=== PATIENT | female | born 1935 | race African-American/Black ===

== ENCOUNTER 2018-07-13 20:06 | Inpatient (IN) ==
--- NOTE | 2018-07-13 20:40 | ED ---
HPI General Chief Complaint: Extremity Injury, Lower Stated Complaint: R knee inj x last night Time Seen by Provider: 07/13/18 20:15 History of Present Illness HPI Narrative: This is an 83-year-old female here with right knee/thigh/hip pain after she fell from a standing position in her home sometime early this morning. She reports she slipped falling onto her right flexed knee. She denies head injury or loss of consciousness. She is not anticoagulated. She reports she sat on the ground until her daughter arrived to help her get up. This was around lunchtime. She has been walking around with her walker since. The pain has steadily intensified therefore she came in for evaluation today. She denies headache, neck pain, chest pain, shortness of breath, abdominal pain , paresthesia or weakness of the extremities. She has had a prior pelvic fracture several years prior and right total knee replacement in early . Pain in the right extremity is worse with weightbearing and relieved with rest. Severity is moderate. Related Data Previous Rx's Medication Instructions Recorded gabapentin 300 mg PO HS #30 cap 07/17/18 lisinopril 10 mg PO DAILY 30 Days #30 tab 07/17/18 primidone 100 mg PO Q12H #60 tab 07/17/18 Allergies Allergy/AdvReac Type Severity Reaction Status Date / Time No Known Allergies Allergy Unverified 07/13/18 20:26 Review of Systems ROS: all other systems reviewed are negative [facility] Medical History Medical History History of hypertension (Acute) Hx of fracture of pelvis (Acute) Surgical History Surgical History History of knee replacement (Acute) Social History Social History Substance History: No History of Abuse Second Hand Smoke Exposure: No Smoking Status: Never smoker How Often Do You Have a Drink Containing Alcohol: Never Exam Narrative Exam Narrative: GENERAL: Alert and well-appearing 83-year-old female. SKIN: Focused skin assessment warm/dry. HEAD: Normocephalic. Atraumatic EYES: No scleral icterus. PERRLA. EOMI. No injection or drainage. NECK: Supple, trachea midline. No cervical midline tenderness. Freely moves the neck. CARDIOVASCULAR: Regular rate and rhythm without murmurs, gallops, or rubs. RESPIRATORY: Breath sounds equal bilaterally. No accessory muscle use. GASTROINTESTINAL: Abdomen soft, non-tender, nondistended. MUSCULOSKELETAL: No cyanosis, or edema. No chest wall tenderness. Pelvis is stable. She points to the right groin as sided pain. RLE: + Tenderness to the lateral hip, distal femur, anterior aspect of the knee. No obvious deformity. Flexion of the hip and knee elicit pain. Mild swelling to the right lower extremity which patient and family report is chronic. Palpable DP pulse. Sensation intact. Cap refill intact BACK: Nontender spine without obvious deformity. No CVA tenderness. NEUROLOGICAL: Awake and alert. No obvious cranial nerve deficit. Motor and sensory grossly within normal limits. Normal strength in lower extremities bilaterally. Normal speech. Course Consultations Consultation #1: Nereida with [facility] has accepted admission on behalf of Dr. Lorenz Time: 23:03 Initial Documented Vital Signs Temperature 99.7 F H 07/13/18 20:11 Pulse Rate 69 07/13/18 20:11 Respiratory Rate 18 07/13/18 20:11 Blood Pressure 155/70 H 07/13/18 20:11 Pulse Oximetry 96 07/13/18 20:11 Last Documented Vital Signs Temperature 98.2 F 07/17/18 04:00 Pulse Rate 54 L 07/17/18 04:00 Respiratory Rate 17 07/17/18 04:00 Blood Pressure 186/77 H 07/17/18 04:00 Pulse Oximetry 99 07/17/18 04:00 Sign Out Sign Out Data: Patient Sign Out occurred on 07/13/18 at 21:45. Patient's care was discussed, and care was transferred from Ana Upton to Alison Lambert. Sign Out Comment: End of shift signout to Dr. lambert with x-ray and CT pending. Last updated by Ana Upton at 07/13/18 20:59 Post-Handoff Eval: Patient was turned over to me at [address] of the brain and plain films of the pelvis and right knee. I will consult orthopedics regarding definitive care for this patient. Dr. Valdez has asked that us in the patient to the [facility] for treatment. I have discussed disposition again with the patient and her daughter. I have placed a call to the hospitalist for admission to the [facility]. Medical Decision Making MDM Narrative Medical decision making narrative: 83-year-old female with hip and knee pain after a fall today. Noncontrast CT the brain, right hip/pelvic x-ray, right knee x-ray ordered and pending. Medical Screen Exam Complete: Yes Emergency Medical Condition: Yes Differential Diagnosis Differential Diagnosis: Hip fracture, pelvic fracture, knee sprain Lab Data Result diagrams: 07/15/18 09:35 07/15/18 09:35 Lab Results 07/14/18 07/14/18 07/14/18 Range/Units 00:27 00:27 00:27 CBC w Diff Auto diff final WBC 7.3 (4.0-11.0) th/mm3 RBC 2.73 L (4.00-5.30) mil/mm3 Hgb 8.8 L (11.6-15.3) gm/dL Hct 25.6 L (35.0-46.0) % MCV 93.6 (80.0-100.0) fL MCH 32.3 (27.0-34.0) pg MCHC 34.5 (32.0-36.0) % RDW 13.6 (11.6-17.2) % Plt Count 126 L (150-450) th/mm3 MPV 10.7 (7.0-11.0) fL Neut % (Auto) 63.6 (16.0-70.0) % Lymph % (Auto) 26.1 (9.0-44.0) % Greer % (Auto) 5.0 (0.0-8.0) % Eos % (Auto) 4.5 H (0.0-4.0) % Baso % (Auto) 0.8 (0.0-2.0) % Neut # (Auto) 4.6 (1.8-7.7) th/mm3 Lymph # (Auto) 1.9 (1.0-4.8) th/mm3 Greer # (Auto) 0.4 (0.0-0.9) th/mm3 Eos # (Auto) 0.3 (0.0-0.4) th/mm3 Baso # (Auto) 0.1 (0.0-0.2) th/mm3 WBC Differential . Differential Comment . PT 11.0 (9.8-11.6) sec INR 1.1 Ratio APTT 22.9 L (24.3-30.1) sec Sodium 141 (136-145) meq/L Potassium 4.8 (3.5-5.1) meq/L Chloride 109 H (98-107) meq/L Carbon Dioxide 27.5 (21.0-32.0) meq/L Anion Gap 5 (5-15) meq/L BUN 34 H (7-18) mg/dL Creatinine 1.90 H (0.50-1.00) mg/dL Estimated GFR 30 L (>89) mL/min Random Glucose 132 H (74-106) mg/dL Calcium 8.6 (8.5-10.1) mg/dL Phosphorus (2.5-4.9) mg/dL Magnesium (1.5-2.5) mg/dL Total Bilirubin 0.2 (0.2-1.0) mg/dL AST 55 H (15-37) U/L ALT 28 (10-53) U/L Alkaline Phosphatase 86 (45-117) U/L Total Protein 8.0 (6.4-8.2) g/dL Albumin 3.4 (3.4-5.0) g/dL Urine Color (Yellw/Straw) Urine Clarity (Clear) Urine pH (5.0-8.5) Ur Specific [place] (1.002-1.035) Urine Protein (Neg-Trace) mg/dL Urine Glucose (UA) (Negative) mg/dL Urine Ketones (Negative) mg/dL Urine Occult Blood (Negative) Urine Nitrate (Negative) Urine Bilirubin (Negative) Urine Urobilinogen (Less than 2) mg/dL Ur Leukocyte Esterase (Negative) Urine RBC (0-3) /hpf Urine WBC (0-5) /hpf Urine WBC Clumps (None) Ur Squamous Epith Cells (0-5) /hpf Urine Bacteria (None) /hpf WBC Casts (None) /lpf Micro UA Comment Urine Culture Comments 07/14/18 07/14/18 07/15/18 Range/Units 02:15 06:20 09:35 CBC w Diff WBC 4.0 (4.0-11.0) th/mm3 RBC 2.90 L (4.00-5.30) mil/mm3 Hgb 9.5 L (11.6-15.3) gm/dL Hct 29.0 L (35.0-46.0) % MCV 100.0 D (80.0-100.0) fL MCH 32.9 (27.0-34.0) pg MCHC 32.9 (32.0-36.0) % RDW 14.1 (11.6-17.2) % Plt Count 126 L (150-450) th/mm3 MPV 10.8 (7.0-11.0) fL Neut % (Auto) 52.9 (16.0-70.0) % Lymph % (Auto) 32.0 (9.0-44.0) % Greer % (Auto) 7.6 (0.0-8.0) % Eos % (Auto) 6.9 H (0.0-4.0) % Baso % (Auto) 0.6 (0.0-2.0) % Neut # (Auto) 2.1 (1.8-7.7) th/mm3 Lymph # (Auto) 1.3 (1.0-4.8) th/mm3 Greer # (Auto) 0.3 (0.0-0.9) th/mm3 Eos # (Auto) 0.3 (0.0-0.4) th/mm3 Baso # (Auto) 0.0 (0.0-0.2) th/mm3 WBC Differential . Differential Comment Auto diff final PT (9.8-11.6) sec INR Ratio APTT (24.3-30.1) sec Sodium 143 (136-145) meq/L Potassium 5.3 H (3.5-5.1) meq/L Chloride 111 H (98-107) meq/L Carbon Dioxide 24.6 (21.0-32.0) meq/L Anion Gap 7 (5-15) meq/L BUN 31 H (7-18) mg/dL Creatinine 1.60 H (0.50-1.00) mg/dL Estimated GFR 37 L (>89) mL/min Random Glucose 144 H (74-106) mg/dL Calcium 8.7 (8.5-10.1) mg/dL Phosphorus (2.5-4.9) mg/dL Magnesium (1.5-2.5) mg/dL Total Bilirubin 0.3 (0.2-1.0) mg/dL AST 54 H (15-37) U/L ALT 26 (10-53) U/L Alkaline Phosphatase 76 (45-117) U/L Total Protein 7.3 D (6.4-8.2) g/dL Albumin 2.9 L (3.4-5.0) g/dL Urine Color Yellow (Yellw/Straw) Urine Clarity Slightly cloudy (Clear) Urine pH 6.0 (5.0-8.5) Ur Specific [place] 1.020 (1.002-1.035) Urine Protein Trace (Neg-Trace) mg/dL Urine Glucose (UA) Negative (Negative) mg/dL Urine Ketones Trace H (Negative) mg/dL Urine Occult Blood Small H (Negative) Urine Nitrate Negative (Negative) Urine Bilirubin Negative (Negative) Urine Urobilinogen 0.2 (Less than 2) mg/dL Ur Leukocyte Esterase Moderate H (Negative) Urine RBC 4-15 H (0-3) /hpf Urine WBC 9-20 H (0-5) /hpf Urine WBC Clumps Rare H (None) Ur Squamous Epith Cells 6-10 H (0-5) /hpf Urine Bacteria Few H (None) /hpf WBC Casts 1-3 H (None) /lpf Micro UA Comment Culture indicated Urine Culture Comments Culture indicated 07/15/18 Range/Units 09:35 CBC w Diff WBC (4.0-11.0) th/mm3 RBC (4.00-5.30) mil/mm3 Hgb (11.6-15.3) gm/dL Hct (35.0-46.0) % MCV (80.0-100.0) fL MCH (27.0-34.0) pg MCHC (32.0-36.0) % RDW (11.6-17.2) % Plt Count (150-450) th/mm3 MPV (7.0-11.0) fL Neut % (Auto) (16.0-70.0) % Lymph % (Auto) (9.0-44.0) % Greer % (Auto) (0.0-8.0) % Eos % (Auto) (0.0-4.0) % Baso % (Auto) (0.0-2.0) % Neut # (Auto) (1.8-7.7) th/mm3 Lymph # (Auto) (1.0-4.8) th/mm3 Greer # (Auto) (0.0-0.9) th/mm3 Eos # (Auto) (0.0-0.4) th/mm3 Baso # (Auto) (0.0-0.2) th/mm3 WBC Differential Differential Comment PT (9.8-11.6) sec INR Ratio APTT (24.3-30.1) sec Sodium 140 (136-145) meq/L Potassium 4.9 (3.5-5.1) meq/L Chloride 111 H (98-107) meq/L Carbon Dioxide 22.0 (21.0-32.0) meq/L Anion Gap 7 (5-15) meq/L BUN 28 H (7-18) mg/dL Creatinine 1.20 H (0.50-1.00) mg/dL Estimated GFR 52 L (>89) mL/min Random Glucose 118 H (74-106) mg/dL Calcium 8.6 (8.5-10.1) mg/dL Phosphorus 3.1 (2.5-4.9) mg/dL Magnesium 2.0 (1.5-2.5) mg/dL Total Bilirubin (0.2-1.0) mg/dL AST (15-37) U/L ALT (10-53) U/L Alkaline Phosphatase (45-117) U/L Total Protein (6.4-8.2) g/dL Albumin 2.7 L (3.4-5.0) g/dL Urine Color (Yellw/Straw) Urine Clarity (Clear) Urine pH (5.0-8.5) Ur Specific [place] (1.002-1.035) Urine Protein (Neg-Trace) mg/dL Urine Glucose (UA) (Negative) mg/dL Urine Ketones (Negative) mg/dL Urine Occult Blood (Negative) Urine Nitrate (Negative) Urine Bilirubin (Negative) Urine Urobilinogen (Less than 2) mg/dL Ur Leukocyte Esterase (Negative) Urine RBC (0-3) /hpf Urine WBC (0-5) /hpf Urine WBC Clumps (None) Ur Squamous Epith Cells (0-5) /hpf Urine Bacteria (None) /hpf WBC Casts (None) /lpf Micro UA Comment Urine Culture Comments Imaging Data Attestation: I personally reviewed and interpreted this imaging study as follows : Radiologist's impression: Head CT 07/13/18 20:23 CONCLUSION: 1. No acute findings in the brain. . Hip X-Ray 07/13/18 20:23 CONCLUSION: Abnormal appearance to the right superior and inferior pubic ramus suggesting old bony injury, but there is also a lucency about the superior pubic ramus suggesting there may be an acute on chronic injury. Small cystic lesion at the junction of the superior femoral head and neck may also be a manifestation of old injury. Recommend further evaluation with thin section CT. Knee X-Ray 07/13/18 20:23 CONCLUSION: Mildly displaced spiral fracture of the distal femur about the long femoral stem component of the total knee arthroplasty. Pelvis CT 07/13/18 22:48 CONCLUSION: 1. Old trauma. No acute abnormality. Chest X-Ray 07/13/18 22:58 CONCLUSION: No acute cardiopulmonary disease. Knee X-Ray 07/16/18 00:00 CONCLUSION: Stable oblique minimally displaced periprosthetic fracture of the distal right femoral metadiaphysis, as above. Discharge Plan Discharge Disposition Patient Disposition: 30 Still Patient Discharge Condition Condition: Fair Discharge Order Discharge Orders: Discharge Order (Routine); Ordered 07/17/18 Ordered By: Corby Jolly Discharge Details Diagnosis: Closed fracture of right distal femur, Closed pelvic fracture Physicians Team ED Provider: Alison Lambert Primary Care Provider: UNKNOWN, Attending Provider: Yaron Hernadez Other Providers: Brian Farr ; [employer] ; Yaron Valdez ; Renetta Hutson Status ED Status: Left Department Discharge Information Discharge Date/Time: 07/14/18 02:28
--- NOTE | 2018-07-13 21:17 | CT ---
EXAM DATE: 07/13/2018 9:05 PM EDT AGE/SEX: 83 years / Female INDICATIONS: Trauma. Patient hit head and injured knee last night. CLINICAL DATA: This is the patient's initial encounter. Patient reports that signs and symptoms have been present for 1 day and indicates a pain score of 5/10. MEDICAL/SURGICAL HISTORY: . Hypertension. Fractured pelvis. . Knee replacement. RADIATION DOSE: 60.75 CTDI (mGy) COMPARISON: No prior exams available for comparison. TECHNIQUE: CT of the head without contrast. Using automated exposure control and adjustment of the mA and/or kV according to patient size, radiation dose was kept as low as reasonably achievable to ob tain optimal diagnostic quality images. DICOM format image data is available electronically for revi ew and comparison. FINDINGS: Cerebrum: The ventricles are normal for age. No evidence of midline shift, mass lesion, hemorrhage or acute infarction. No extraaxial fluid collections are seen. Posterior Fossa: The cerebellum and brainstem are intact. The 4th ventricle is midline. The cerebe llopontine angle is unremarkable. Extracranial: The visualized portion of the orbits is intact. 1 cm retention cyst or polyp right max illary sinus. Skull: The calvaria is intact. No evidence of skull fracture. CONCLUSION: 1. No acute findings in the brain. . Electronically signed by: Yaron Alexander MD 07/13/2018 9:16 PM EDT
--- NOTE | 2018-07-13 21:46 | XR ---
EXAM DATE: 07/13/2018 9:07 PM EDT AGE/SEX: 83 years / Female INDICATIONS: Patient states she fell today. Right hip and knee pain. CLINICAL DATA: This is the patient's initial encounter. Patient reports that signs and symptoms have been present for 1 day and indicates a pain score of 6/10. MEDICAL/SURGICAL HISTORY: . Pelvic fracture. Total knee replacement, right. COMPARISON: No prior exams available for comparison. FINDINGS: Diffuse osteopenia. There is deformity of the superior and inferior pubic ramus on the right side whi ch has a appearance suggestive of old injury, however, on one of the oblique views, there is angulati on of the cortex and a lucency in the superior pubic ramus suggesting there may be an acute component . The primary and secondary trabecular pattern of the femoral neck is maintained. There is a round sabino cency at the junction of the right superior femoral head and neck with thin sclerotic margin suggesti ng manifestation of old injury. The intertrochanteric region is intact. There is a amorphous calcific ation projected over the midline pelvis which may be related to the uterus measuring 1.5 cm. Addition al small calcifications are seen in the soft tissues of the left gluteal region. Additional calcifica tions are seen about the lower lumbar region. The arcuate lines of the sacrum or symmetric. CONCLUSION: Abnormal appearance to the right superior and inferior pubic ramus suggesting old bony injury, but th ere is also a lucency about the superior pubic ramus suggesting there may be an acute on chronic inju ry. Small cystic lesion at the junction of the superior femoral head and neck may also be a manifesta tion of old injury. Recommend further evaluation with thin section CT. Electronically signed by: Yaron Alexander MD 07/13/2018 9:45 PM EDT
--- NOTE | 2018-07-13 21:48 | XR ---
EXAM DATE: 07/13/2018 9:09 PM EDT AGE/SEX: 83 years / Female INDICATIONS: Right knee and hip pain after patient fell today. CLINICAL DATA: This is the patient's initial encounter. Patient reports that signs and symptoms have been present for 1 day and indicates a pain score of 5/10. MEDICAL/SURGICAL HISTORY: None. Total knee replacement, right. COMPARISON: No prior exams available for comparison. FINDINGS: There is a total knee arthroplasty with long femoral stem component and moderate size tibial stem com ponent. There is a spiral fracture about the distal diaphysis of the femur with one cortex width medi al displacement of the distal fracture fragment and 3 mm separation. There is no bridging callus . CONCLUSION: Mildly displaced spiral fracture of the distal femur about the long femoral stem component of the tot al knee arthroplasty. Electronically signed by: Yaron Alexander MD 07/13/2018 9:47 PM EDT
--- NOTE | 2018-07-13 23:39 | CT ---
EXAM DATE: 07/13/2018 11:28 PM EDT AGE/SEX: 83 years / Female INDICATIONS: Trauma. Patient fell and injured her right knee. CLINICAL DATA: This is the patient's initial encounter. Patient reports that signs and symptoms have been present for 1 day and indicates a pain score of 6/10. MEDICAL/SURGICAL HISTORY: . Hypertension. Fractured pelvis. . Knee replacement. RADIATION DOSE: 30.57 CTDI (mGy) COMPARISON: No prior exams available for comparison. TECHNIQUE: Multiple contiguous axial images were obtained through the pelvis without contrast. Imag es were obtained using multiple row detector helical technique. . Using automated exposure control an d adjustment of the mA and/or kV according to patient size, radiation dose was kept as low as reasona erica achievable to obtain optimal diagnostic quality images. DICOM format image data is available jhonny ctronically for review and comparison. FINDINGS: Bowel/Mesentery: The bowel loops are grossly unremarkable. The sigmoid colon has a normal configura tion. Bladder: Contours are smooth. Retroperitoneum: No evidence of deep pelvic adenopathy. Reproductive Organs: A homogeneously calcified degenerating fibroid involving the uterus.. Inguinal: The inguinal region is unremarkable without evidence of adenopathy. Bony Structures: Old fracture involving the superior and inferior pubic rami on the right. No acute fracture observed. Bilateral hip osteoarthritis. Degenerative changes involving the visualized portio ns lumbar spine and SI joints. Injection granulomas involving the left buttock.. Diffuse calcified atherosclerotic plaque involving the visualized portions of aorta and inflow vessel s. CONCLUSION: 1. Old trauma. No acute abnormality. Electronically signed by: Yaron Miller MD 07/13/2018 11:38 PM EDT
--- NOTE | 2018-07-13 23:41 | XR ---
EXAM DATE: 07/13/2018 11:39 PM EDT AGE/SEX: 83 years / Female INDICATIONS: Evaluate for pneumonia, pneumothorax, or communicable disease. Pre op for right femur surgery. CLINICAL DATA: This is the patient's initial encounter. Patient reports that signs and symptoms have been present for 1 day and indicates a pain score of 0/10. MEDICAL/SURGICAL HISTORY: Hypertension. None. COMPARISON: No prior exams available for comparison. FINDINGS: A single AP view of the chest demonstrates the lungs to be symmetrically aerated without evidence of mass, infiltrate or effusion. The cardiomediastinal contours are unremarkable. Advanced osteoarthrit is of the shoulders bilaterally. Degenerative thoracic spine.. CONCLUSION: No acute cardiopulmonary disease. Electronically signed by: Yaron Miller MD 07/13/2018 11:40 PM EDT
[2018-07-14 00:44] LABS: Baso # (Auto) 0.1 th/mm3 (0.0-0.2); Baso % (Auto) 0.8 % (0.0-2.0); Eos # (Auto) 0.3 th/mm3 (0.0-0.4); Eos % (Auto) 4.5 % (0.0-4.0); Hematocrit 25.6 % (35.0-46.0); Hemoglobin 8.8 gm/dL (11.6-15.3); Lymph # (Auto) 1.9 th/mm3 (1.0-4.8); Lymph % (Auto) 26.1 % (9.0-44.0); Mean Corpuscular HGB Conc 34.5 % (32.0-36.0); Mean Corpuscular Hemoglobin 32.3 pg (27.0-34.0); Mean Corpuscular Volume 93.6 fL (80.0-100.0); Mean Platelet Volume 10.7 fL (7.0-11.0); Mono # (Auto) 0.4 th/mm3 (0.0-0.9); Neut # (Auto) 4.6 th/mm3 (1.8-7.7); Neut % (Auto) 63.6 % (16.0-70.0); Platelet Count 126 th/mm3 (150-450); Red Blood Count 2.73 mil/mm3 (4.00-5.30); Red Cell Distribution Width 13.6 % (11.6-17.2); White Blood Count 7.3 th/mm3 (4.0-11.0)
[2018-07-14 00:54] LABS: Chloride 109 meq/L (98-107); Potassium 4.8 meq/L (3.5-5.1); Sodium 141 meq/L (136-145)
[2018-07-14 00:57] LABS: Calcium 8.6 mg/dL (8.5-10.1)
[2018-07-14 00:58] LABS: Activated Partial Thrombo Time 22.9 sec (24.3-30.1); Albumin 3.4 g/dL (3.4-5.0); Anion Gap 5 meq/L (5-15); Blood Urea Nitrogen 34 mg/dL (7-18); Carbon Dioxide 27.5 meq/L (21.0-32.0); Glucose,Random 132 mg/dL (74-106); INR 1.1 Ratio
[2018-07-14 01:01] LABS: Alanine Aminotransferase 28 U/L (10-53); Aspartate Aminotransferase 55 U/L (15-37); Glomerular Filtration Rate 30 mL/min (>89)
[2018-07-14 01:04] LABS: Alkaline Phosphatase 86 U/L (45-117)
[2018-07-14] MEDS: Sod Chloride 0.9% Inj 1,000 ML IV.CONT SCH ×3 (01:10→23:21)
[2018-07-14 02:27] LABS: Bilirubin,Urine Negative (Negative); Color,Urine Yellow (Yellw/Straw); Glucose,Urine (UA) Negative (Negative); Leukocyte Esterase,Urine Moderate (Negative); Nitrite,Urine Negative (Negative); Urobilinogen,Urine 0.2 mg/dL (Less than 2)
[2018-07-14 02:36] LABS: Clarity,Urine Slightly Cloudy (Clear)
[2018-07-14 02:38] LABS: Bacteria,Urine Few /hpf
[2018-07-14] MEDS ORDERED: Morphine Inj 4 MG/ML Vial IV.PUSH PRN (04:29)
--- NOTE | 2018-07-14 04:32 | P.HPIM ---
History of Present Illness Service: [facility] Primary Care Physician: UNKNOWN Chief Complaint: right knee pain History of Present Illness: 83 y/o female with a history of htn presented to the ED after having a fall. Patient states she tripped and fell in his living room on to her right knee. She currently denies any pain. No chest pain, sob, or dizziness prior to fall. Denies any LOC or hitting her head. No recent fever or chills. Inpatient Certification: I certify that the inpatient services were ordered in accordance with Medicare regulations governing the order. This includes certification that hospital inpatient services are reasonable and necessary and in the case of services not specified as inpatient-only under 42 CFR 419.22(n), that they are appropriately provided as inpatient services in accordance to with the 2-midnight benchmark under 43 CFR 412.3(e) Estimated Total Length of Stay (Days): 2 Plans for Post Hospital Care: Home Review of Systems All other systems reviewed negative except as stated in HPI [facility] - History History Provided By: Patient - Medical History Medical History: Medical History (Last Reviewed 07/13/18 @ 20:34 by Ana Upton) History of hypertension Hx of fracture of pelvis - Surgical History Surgical History: Surgical History (Last Reviewed 07/13/18 @ 20:34 by Ana Upton) History of knee replacement - Family History Family History: Family History (Last Updated 07/14/18 @ 04:29 by MIGUEL Rodriguez) Other HTN (hypertension) - Tobacco History Second Hand Smoke Exposure: No Smoking Status: Never smoker - Alcohol History How Often Do You Have a Drink Containing Alcohol: Never - Substance Use History Substance History: No History of Abuse - Travel History Recent Travel in the [place] Within the Last 8 Weeks: No Recent Travel Out of the Country Within the Last 8 Weeks: No - Immunization History Tetanus Immunization: >5 Years Hx Influenza Vaccine This Season: No Medications and Allergies Active Medications: Active Medications Acetaminophen (Tylenol) 650 mg PO Q4H PRN PRN Reason: Temp > 100.4 Sodium Chloride (Ns Inj) 1,000 mls @ 100 mls/hr IV.CONT .Q10H [facility] Last Admin: 07/14/18 01:10 Dose: 100 mls/hr Morphine Sulfate (Morphine Inj) 2 mg IV.PUSH Q3H PRN PRN Reason: pain 1 to 10 Ondansetron HCl (Zofran Inj) 4 mg IV.PUSH Q6H PRN PRN Reason: NAUSEA OR VOMITING Allergies Allergy/AdvReac Type Severity Reaction Status Date / Time No Known Allergies Allergy Unverified 07/13/18 20:26 Home Medications Medication Instructions Recorded Confirmed Type gabapentin 300 mg PO HS 07/13/18 07/13/18 History lisinopril 5 mg PO DAILY 07/13/18 07/13/18 History oxybutynin chloride 10 mg PO BID 07/13/18 07/13/18 History primidone 100 mg PO Q12H 07/13/18 07/13/18 History Exam Vital signs: Vital Signs 07/13/18 20:11 07/14/18 01:01 07/14/18 02:24 Temperature 99.7 F H Pulse Rate 69 87 67 Respiratory Rate 18 18 Blood Pressure 155/70 H 148/72 H 166/66 H Pulse Oximetry 96 98 98 Intake & Output 07/13/18 07/13/18 07/14/18 06:59 18:59 06:59 Intake Total 200 / 200 Balance 200 / 200 Weight 88 kg Intake: Oral 200 / 200 Narrative: GENERAL: This is a well-nourished, well-developed patient, in no apparent distress. CARDIOVASCULAR: Regular rate and rhythm without murmurs, gallops, or rubs. RESPIRATORY: Clear to auscultation. Breath sounds equal bilaterally. No wheezes , rales, or rhonchi. GASTROINTESTINAL: Abdomen soft, non-tender, nondistended. Normal active bowel sounds MUSCULOSKELETAL: Extremities without clubbing, cyanosis, or edema. NEURO: Alert & Oriented x4 to person, place, time, situation. RLE limited movement in CKS Results - Labs CBC & Chem 7: 07/14/18 00:27 07/14/18 00:27 Labs: Short CBC 07/14/18 Range/Units 00:27 WBC 7.3 (4.0-11.0) th/mm3 Hgb 8.8 L (11.6-15.3) gm/dL Hct 25.6 L (35.0-46.0) % Plt Count 126 L (150-450) th/mm3 BMP 07/14/18 00:27 Sodium 141 Potassium 4.8 Chloride 109 H Carbon Dioxide 27.5 BUN 34 H Creatinine 1.90 H Calcium 8.6 Liver Function 07/14/18 Range/Units 00:27 Total Bilirubin 0.2 (0.2-1.0) mg/dL AST 55 H (15-37) U/L ALT 28 (10-53) U/L Alkaline Phosphatase 86 (45-117) U/L Albumin 3.4 (3.4-5.0) g/dL Urine 07/14/18 Range/Units 02:15 Urine Color Yellow (Yellw/Straw) Urine Clarity Slightly cloudy (Clear) Urine pH 6.0 (5.0-8.5) Ur Specific [place] 1.020 (1.002-1.035) Urine Protein Trace (Neg-Trace) mg/dL Urine Glucose (UA) Negative (Negative) mg/dL - Imaging Impressions Head CT 07/13/18 20:23 CONCLUSION: 1. No acute findings in the brain. . Hip X-Ray 07/13/18 20:23 CONCLUSION: Abnormal appearance to the right superior and inferior pubic ramus suggesting old bony injury, but there is also a lucency about the superior pubic ramus suggesting there may be an acute on chronic injury. Small cystic lesion at the junction of the superior femoral head and neck may also be a manifestation of old injury. Recommend further evaluation with thin section CT. Knee X-Ray 07/13/18 20:23 CONCLUSION: Mildly displaced spiral fracture of the distal femur about the long femoral stem component of the total knee arthroplasty. Pelvis CT 07/13/18 22:48 CONCLUSION: 1. Old trauma. No acute abnormality. Chest X-Ray 07/13/18 22:58 CONCLUSION: No acute cardiopulmonary disease. Caprini VTE Risk Assessment Caprini VTE Risk Assessment: Moderate/High Risk (score >= 2) Caprini Risk Assessment Model: Point Value = 1 Point Value = 2 Point Value = 3 Point Value = 5 Age 41-60 Minor surgery BMI > 25 kg/m2 Swollen legs Varicose veins or History of unexplained or recurrent spontaneous Oral contraceptives or hormone replacement Sepsis (< 1 month) Serious lung disease, including pneumonia (< 1 month) Abnormal pulmonary function Acute myocardial infarction Congestive heart failure (< 1 month) History of inflammatory bowel disease Medical patient at bed rest Age 61-74 Arthroscopic surgery Major open surgery (> 45 min) Laparoscopic surgery (> 45 min) Malignancy Confined to bed (> 72 hours) Immobilizing plaster cast Central venous access Age >= 75 History of VTE Family history of VTE Factor V Leiden Prothrombin [id number] Lupus anticoagulant Anticardiolipin antibodies Elevated serum homocysteine Heparin-induced thrombocytopenia Other congenital or acquired thrombophilia Stroke (< 1 month) Elective arthroplasty Hip, pelvis, or leg fracture Acute spinal cord injury (< 1 month) Prophylaxis Regimen: Total Risk Factor Score Risk Level Prophylaxis Regimen 0-1 Low Early ambulation 2 Moderate Order ONE of the following: *Sequential Compression Device (SCD) *Heparin 5000 units SQ BID 3-4 Higher Order ONE of the following medications: *Heparin 5000 units SQ TID *Enoxaparin/Lovenox 40 mg SQ daily (WT < 150 kg, CrCl > 30 mL/min) *Enoxaparin/Lovenox 30 mg SQ daily (WT < 150 kg, CrCl > 10-29 mL/min) *Enoxaparin/Lovenox 30 mg SQ BID (WT < 150 kg, CrCl > 30 mL/min) AND/OR *Sequential Compression Device (SCD) 5 or more Highest Order ONE of the following medications: *Heparin 5000 units SQ TID (Preferred with Epidurals) *Enoxaparin/Lovenox 40 mg SQ daily (WT < 150 kg, CrCl > 30 mL/min) *Enoxaparin/Lovenox 30 mg SQ daily (WT < 150 kg, CrCl > 10-29 mL/min) *Enoxaparin/Lovenox 30 mg SQ BID (WT < 150 kg, CrCl > 30 mL/min) AND *Sequential Compression Device (SCD) Assessment and Plan - Plan Femur fracture Knee x ray reviewed and shows a Mildly displaced spiral fracture of the distal femur about the long femoral stem component of the total knee arthroplasty. -Consult orthopedics -NPO, IVF -Pain management with IV Morphine -PT eval Hypertension, acute -Cont home medications, monitor vitals DVT prophylaxis: SCDS Discussed Condition With: Patient and RN
[2018-07-14] MEDS: Primidone 50 MG Tablet PO SCH ×2 (05:37→16:59)
--- NOTE | 2018-07-14 07:23 | P.CONOP ---
[facility] Orthopedics Consult Note - [facility] Consult date: 07/14/18 Chief complaint: Right distal femoral fracture, previous Right tota Narrative: Nereida is a pleasant 83-year-old female. She presented to the emergency room with right-sided knee pain. She states that she fell. Patient states that she fell 6 days ago. Her history from the emergency room states that she fell yesterday. She does not clearly recall when her fall was. She states that she has seen Dr. Jordan in [facility] for this problem. She states that his plan was to treat this nonoperatively. She is currently awake and alert on the orthopedic floor. She denies dizziness, syncope, or loss of consciousness. Knee pain is worse with movement and is improved with rest. Her only complaint is right knee pain. She denies significant knee pain prior to her fall. Pain is severe and intense when she moves. Review of Systems Patient denies fevers, chills, weight loss, headache, visual changes, hearing loss, chest pain, palpitations, shortness of breath, nausea, vomiting, no urinary changes, diarrhea, bowel changes, neck pain, back pain, skin rashes, weakness of extremities, easy bleeding, enlarged lymph nodes, numbness of extremities, anxiety, or depression. She complains of right leg and knee pain All other systems reviewed negative except as stated in [facility] - History History Provided By: Patient - Medical History Medical History: Medical History (Last Reviewed 07/13/18 @ 20:34 by Ana Upton) History of hypertension Hx of fracture of pelvis - Surgical History Surgical History: Surgical History (Last Reviewed 07/13/18 @ 20:34 by Ana Upton) History of knee replacement - Family History Family History: Family History (Last Updated 07/14/18 @ 04:29 by MIGUEL Rodriguez) Other HTN (hypertension) - Tobacco History Second Hand Smoke Exposure: No Smoking Status: Never smoker - Alcohol History How Often Do You Have a Drink Containing Alcohol: Never - Substance Use History Substance History: No History of Abuse - Travel History Recent Travel in the [place] Within the Last 8 Weeks: No Recent Travel Out of the Country Within the Last 8 Weeks: No - Immunization History Tetanus Immunization: >5 Years Hx Influenza Vaccine This Season: No Medications and Allergies Active Medications: Active Medications Acetaminophen (Tylenol) 650 mg PO Q4H PRN PRN Reason: Temp > 100.4 Gabapentin (Neurontin) 300 mg PO HS [facility] Sodium Chloride (Ns Inj) 1,000 mls @ 100 mls/hr IV.CONT .Q10H [facility] Last Admin: 07/14/18 01:10 Dose: 100 mls/hr Lisinopril (Prinivil) 5 mg PO DAILY [facility] Morphine Sulfate (Morphine Inj) 2 mg IV.PUSH Q3H PRN PRN Reason: pain 1 to 10 Ondansetron HCl (Zofran Inj) 4 mg IV.PUSH Q6H PRN PRN Reason: NAUSEA OR VOMITING Oxybutynin Chloride (Ditropan) 10 mg PO BID [facility] Primidone (Mysoline) 100 mg PO Q12H [facility] Last Admin: 07/14/18 05:37 Dose: 100 mg Allergies Allergy/AdvReac Type Severity Reaction Status Date / Time No Known Allergies Allergy Unverified 07/13/18 20:26 Home Medications Medication Instructions Recorded Confirmed Type gabapentin 300 mg PO HS 07/13/18 07/13/18 History lisinopril 5 mg PO DAILY 07/13/18 07/13/18 History oxybutynin chloride 10 mg PO BID 07/13/18 07/13/18 History primidone 100 mg PO Q12H 07/13/18 07/13/18 History Exam Vital signs: Vital Signs 07/13/18 20:11 07/14/18 01:01 07/14/18 02:24 Temperature 99.7 F H Pulse Rate 69 87 67 Respiratory Rate 18 18 18 Blood Pressure 155/70 H 148/72 H 166/66 H Pulse Oximetry 96 98 98 07/14/18 04:00 Temperature Pulse Rate Respiratory Rate Blood Pressure 173/72 H Pulse Oximetry 97 Intake & Output 07/13/18 07/14/18 07/14/18 18:59 06:59 18:59 Intake Total 200 / 200 Balance 200 / 200 Weight 82.3 kg Intake: Oral 200 / 200 Other: Date of Last Bowel Movement 07/07/18 Narrative: Nereida is an 83-year-old female. She is awake and alert. She is in no acute distress. She appears well-developed well-nourished. General: Awake and alert. No acute distress. Appears well-developed well- nourished Head: Normocephalic, atraumatic pupils are equal Neck: Soft, nontender, trachea midline Abdomen: Soft, nondistended Examination of bilateral upper extremities reveals no pain or deformity with shoulder, elbow, or wrist motion. Skin is intact. Radial pulses are palpable bilaterally. Normal capillary refill in fingers. Sensation is intact in radial , ulnar, and median nerve distributions. Managed Care Analyst strength is +5 bilaterally. No lymphadenopathy noted. Examination of left lower extremity reveals no pain or deformity with hip, knee , or ankle motion. Skin is intact. Sensation is intact in right foot. Dorsalis pedis pulse is palpable. Normal capillary refill and feet. Thigh and calf compartments are soft. No lymphadenopathy noted. +5 strength of ankle dorsiflexion and plantarflexion. Examination of right lower extremity reveals no tenderness on her hip tibia or ankle. Sensation is intact in right foot. Dorsalis pedis pulses palpable. Sensation is intact in right foot. No lymphadenopathy is noted. She is tender to palpation along her distal femur. She has well-healed surgical incisions from previous total knee arthroplasty. She has minimal joint effusion present. Skin is intact. She does have pain with knee motion. Results - Labs Result Diagrams: 07/14/18 00:27 07/14/18 00:27 Labs: Laboratory Results - last 24 hr 07/14/18 07/14/18 07/14/18 00:27 00:27 00:27 CBC w Diff Auto diff final WBC 7.3 RBC 2.73 L Hgb 8.8 L Hct 25.6 L MCV 93.6 MCH 32.3 MCHC 34.5 RDW 13.6 Plt Count 126 L MPV 10.7 Neut % (Auto) 63.6 Lymph % (Auto) 26.1 [place] % (Auto) 5.0 Eos % (Auto) 4.5 H Baso % (Auto) 0.8 Neut # (Auto) 4.6 Lymph # (Auto) 1.9 [place] # (Auto) 0.4 Eos # (Auto) 0.3 Baso # (Auto) 0.1 WBC Differential . Differential Comment . PT 11.0 INR 1.1 APTT 22.9 L Sodium 141 Potassium 4.8 Chloride 109 H Carbon Dioxide 27.5 Anion Gap 5 BUN 34 H Creatinine 1.90 H Estimated GFR 30 L Random Glucose 132 H Calcium 8.6 Total Bilirubin 0.2 AST 55 H ALT 28 Alkaline Phosphatase 86 Total Protein 8.0 Albumin 3.4 Urine Color Urine Clarity Urine pH Ur Specific Industry Urine Protein Urine Glucose (UA) Urine Ketones Urine Occult Blood Urine Nitrate Urine Bilirubin Urine Urobilinogen Ur Leukocyte Esterase Urine RBC Urine WBC Urine WBC Clumps Ur Squamous Epith Cells Urine Bacteria WBC Casts Micro UA Comment Urine Culture Comments 07/14/18 02:15 CBC w Diff WBC RBC Hgb Hct MCV MCH MCHC RDW Plt Count MPV Neut % (Auto) Lymph % (Auto) [place] % (Auto) Eos % (Auto) Baso % (Auto) Neut # (Auto) Lymph # (Auto) [place] # (Auto) Eos # (Auto) Baso # (Auto) WBC Differential Differential Comment PT INR APTT Sodium Potassium Chloride Carbon Dioxide Anion Gap BUN Creatinine Estimated GFR Random Glucose Calcium Total Bilirubin AST ALT Alkaline Phosphatase Total Protein Albumin Urine Color Yellow Urine Clarity Slightly cloudy Urine pH 6.0 Ur Specific Industry 1.020 Urine Protein Trace Urine Glucose (UA) Negative Urine Ketones Trace H Urine Occult Blood Small H Urine Nitrate Negative Urine Bilirubin Negative Urine Urobilinogen 0.2 Ur Leukocyte Esterase Moderate H Urine RBC 4-15 H Urine WBC 9-20 H Urine WBC Clumps Rare H Ur Squamous Epith Cells 6-10 H Urine Bacteria Few H WBC Casts 1-3 H Micro UA Comment Culture indicated Urine Culture Comments Culture indicated - Diagnostic results Imaging: Impressions Head CT 07/13/18 20:23 CONCLUSION: 1. No acute findings in the brain. . Hip X-Ray 07/13/18 20:23 CONCLUSION: Abnormal appearance to the right superior and inferior pubic ramus suggesting old bony injury, but there is also a lucency about the superior pubic ramus suggesting there may be an acute on chronic injury. Small cystic lesion at the junction of the superior femoral head and neck may also be a manifestation of old injury. Recommend further evaluation with thin section CT. Knee X-Ray 07/13/18 20:23 CONCLUSION: Mildly displaced spiral fracture of the distal femur about the long femoral stem component of the total knee arthroplasty. Pelvis CT 07/13/18 22:48 CONCLUSION: 1. Old trauma. No acute abnormality. Chest X-Ray 07/13/18 22:58 CONCLUSION: No acute cardiopulmonary disease. Knee x-ray: report reviewed, image reviewed Assessment and Plan - Problem List (1) Closed fracture of right distal femur Code(s): S72.401A - Unspecified fracture of lower end of right femur, initial encounter for closed fracture Status: Acute Qualifiers: Encounter type: initial encounter Fracture morphology: torus Qualified Code(s): S72.471A - Torus fracture of lower end of right femur, initial encounter for closed fracture - Assessment and Plan Nereida is an 83-year-old female. She had a fall resulting in minimally displaced right distal femur periprosthetic fracture. Treatment options were discussed in depth with patient including surgical and nonsurgical options. The risk and benefits of surgery were discussed in depth with patient. The risk of surgery include bleeding, infection, injuries to arteries, nerves, or blood vessels, infection, wound complications, nonunion, malunion, painful hardware, and need for further surgery. I also discussed medical complications including blood clots, pneumonia, stroke, heart attack, and . After detailed discussion of treatment options, patient is in agreement to proceed with nonsurgical treatment. Fracture is well aligned. She understands the need to remain nonweightbearing or the fracture will likely displace Physical therapy consult--strict nonweightbearing, no quad sets SCDs and SAMEER shankar Follow-up orthopedics in 2 weeks Start calcium and vitamin D supplementation A mid-level provider in my office (nurse practitioner or physician legal document assistant) may see this patient on follow-up visits and continue to implement the objectives of this plan including: Starting or adjusting medications, injections , cast application, orthotics, brace application, physical therapy, radiological studies (including x-ray, MRI, CT, ultrasound, bone scan), vascular studies, neurologic studies, specialist consultation, and proceeding with surgical management, as appropriate.
[2018-07-14 08:11] LABS: Alanine Aminotransferase 26 U/L (10-53)
[2018-07-14 08:13] LABS: Alkaline Phosphatase 76 U/L (45-117); Total Protein 7.3 g/dL (6.4-8.2)
[2018-07-14 08:21] LABS: Albumin 2.9 g/dL (3.4-5.0); Anion Gap 7 meq/L (5-15); Aspartate Aminotransferase 54 U/L (15-37); Blood Urea Nitrogen 31 mg/dL (7-18); Calcium 8.7 mg/dL (8.5-10.1); Carbon Dioxide 24.6 meq/L (21.0-32.0); Chloride 111 meq/L (98-107); Glomerular Filtration Rate 37 mL/min (>89); Glucose,Random 144 mg/dL (74-106); Sodium 143 meq/L (136-145)
[2018-07-14 08:24] LABS: Potassium 5.3 meq/L (3.5-5.1)
[2018-07-14] MEDS: Acetaminophen 325 MG Tablet PO PRN ×2 (08:30→17:09)
[2018-07-14] MEDS: Calcium/Vitamin D 250/125 MG Tablet PO SCH ×2 (08:30→22:42)
[2018-07-14] MEDS: Enoxaparin Inj 40 MG/0.4 ML Syringe SQ SCH (08:30)
[2018-07-14] MEDS ORDERED: Lisinopril 5 MG Tablet PO SCH (09:00)
--- NOTE | 2018-07-14 17:24 | ECG ---
Date Performed: 07/13/2018 Time Performed: 23:41:33 PTAGE: 83 years EKG: Sinus rhythm RIGHT BUNDLE BRANCH BLOCK ABNORMAL ECG PREVIOUS TRACING : 05/04/2014 09.48 Since the previous tracing, no significant change noted DOCTOR: Seth Loepz Interpretating Date/Time 07/14/2018 17:23:05
[2018-07-14] MEDS: Gabapentin 300 MG Capsule PO SCH (22:43)
[2018-07-15] MEDS: Primidone 50 MG Tablet PO SCH ×2 (06:02→18:16)
--- NOTE | 2018-07-15 06:49 | P.PNOP ---
Subjective Interval history: Resting comfortably with no new complaint Physical Exam Vital signs: Vital Signs 07/14/18 08:00 07/14/18 14:51 07/14/18 15:42 Temperature 97.7 F 97.7 F Pulse Rate 53 L Respiratory Rate 18 20 Blood Pressure 168/77 H 193/74 H 216/87 H Pulse Oximetry 98 97 07/14/18 17:00 07/14/18 20:00 07/15/18 00:00 Temperature 98.1 F 97.6 F Pulse Rate 51 L 54 L Respiratory Rate 18 17 Blood Pressure 158/72 H 123/74 184/72 H Pulse Oximetry 100 100 07/15/18 00:40 07/15/18 04:00 Temperature 97.7 F Pulse Rate 76 Respiratory Rate 18 17 Blood Pressure 187/80 H Pulse Oximetry 100 Intake & Output 07/14/18 07/14/18 07/15/18 06:59 18:59 06:59 Intake Total 200 / 200 1940 / 1940 Balance 200 / 200 1940 / 1940 Weight 82.3 kg 82 kg Intake: IV 1100 / 1100 NS Inj 1,000 ML @ 100 mls/hr IV 1000 / 1000 .CONT .Q10H [facility] Rx#:[id number] Rocephin Inj 1,000 MG In NS Inj 100 / 100 100 ML @ 200 mls/hr IV.SIG Q24H [facility] Rx#:[id number] Oral 200 / 200 840 / 840 Other: # Voids 4 Date of Last Bowel Movement 07/07/18 07/13/18 07/13/18 Narrative: Right lower extremity: Knee immobilizer in place. Intact sensation with active dorsiflexion plantar flexion of foot. Intact distal pulses and capillary refill Results - Labs CBC & Chem 7: 07/14/18 00:27 07/14/18 06:20 Laboratory Results - last 24 hr 07/14/18 06:20 Sodium 143 Potassium 5.3 H Chloride 111 H Carbon Dioxide 24.6 Anion Gap 7 BUN 31 H Creatinine 1.60 H Estimated GFR 37 L Random Glucose 144 H Calcium 8.7 Total Bilirubin 0.3 AST 54 H ALT 26 Alkaline Phosphatase 76 Total Protein 7.3 D Albumin 2.9 L Assessment and Plan - Problem List (1) Closed fracture of right distal femur Code(s): S72.401A - Unspecified fracture of lower end of right femur, initial encounter for closed fracture Status: Acute Qualifiers: Encounter type: initial encounter Fracture morphology: torus Qualified Code(s): S72.471A - Torus fracture of lower end of right femur, initial encounter for closed fracture - Assessment and Plan Right distal periprosthetic femoral shaft fracture Physical therapy consult--strict nonweightbearing, no quad sets SCDs and SAMEER shankar Case management for rehab place Follow-up orthopedics in 2 weeks Start calcium and vitamin D supplementation
[2018-07-15] MEDS: Sod Chloride 0.9% Inj 1,000 ML IV.CONT SCH ×2 (07:36→18:26)
[2018-07-15] MEDS ORDERED: Lisinopril 5 MG Tablet PO SCH (08:13)
--- NOTE | 2018-07-15 09:36 | P.PN ---
Subjective Interval history: Follow-up visit for right femur fracture, HTN and UTI. Patient is seen and examined this morning resting in bed, appears to be in no acute distress. She denies any fevers, chills, nausea, vomiting, diarrhea, abdominal pain, or dysuria. She reports constipation, thinks her last BM was about 4 days ago, + flatus. Physical Exam Vital signs: Vital Signs 07/14/18 14:51 07/14/18 15:42 07/14/18 17:00 Temperature 97.7 F Pulse Rate Respiratory Rate 20 Blood Pressure 193/74 H 216/87 H 158/72 H Pulse Oximetry 97 07/14/18 20:00 07/15/18 00:00 07/15/18 00:40 Temperature 98.1 F 97.6 F Pulse Rate 51 L 54 L Respiratory Rate 18 17 18 Blood Pressure 123/74 184/72 H Pulse Oximetry 100 100 07/15/18 04:00 Temperature 97.7 F Pulse Rate 76 Respiratory Rate 17 Blood Pressure 187/80 H Pulse Oximetry 100 Intake & Output 07/14/18 07/15/18 07/15/18 18:59 06:59 18:59 Intake Total 1939 Balance 1939 Weight 82 kg Intake: IV 1100 / 1100 NS Inj 1,000 ML @ 100 mls/hr IV 1000 / 1000 .CONT .Q10H [facility] Rx#:[id number] Rocephin Inj 1,000 MG In NS Inj 100 / 100 100 ML @ 200 mls/hr IV.SIG Q24H [facility] Rx#:[id number] Oral 840 / 840 Other: # Voids 4 Date of Last Bowel Movement 07/13/18 07/13/18 Narrative: GENERAL: Well-developed, well-nourished female resting in bed comfortably appears to be in no acute distress. SKIN: Warm and dry. HEAD: Atraumatic. Normocephalic. EYES: Pupils equal and round. No scleral icterus or drainage. ENT: Mucous membranes pink and moist. NECK: Trachea midline. CARDIOVASCULAR: Regular rate and rhythm. RESPIRATORY: Clear to auscultation. Breath sounds equal bilaterally. GASTROINTESTINAL: Abdomen soft, non-tender, nondistended. + bowel sounds MUSCULOSKELETAL: Extremities without clubbing, cyanosis. RLE limited movement due to CKS NEUROLOGICAL: Awake and alert. No obvious cranial nerve deficits. Motor grossly within normal limits. Normal speech. Results - Labs CBC & Chem 7: 07/15/18 09:35 07/15/18 09:35 Assessment and Plan - Plan Femur fracture Knee x ray reviewed and shows a Mildly displaced spiral fracture of the distal femur about the long femoral stem component of the total knee arthroplasty. -Orthopedic services have seen and evaluated patient, no surgical intervention, recommend PT with strict nonweightbearing, no quad sets -Started on calcium and vitamin D supplementation -Follow-up with orthopedics in 2 weeks -NPO, IVF -Pain management with IV Morphine -PT eval LEONARD -Continue IV hydration, renal function improved -Avoid nephrotoxins Hypertension, acute -Currently on lisinopril 5 mg daily. -BP continues to be mildly elevated, start low-dose Norvasc, continue trending BPs Urinary tract infection -UA positive, continue ceftriaxone, follow final urine culture and sensitivity -Patient afebrile, asymptomatic. Constipation -Start constipation protocol, encourage mobility DVT prophylaxissubcu Leilani Discussed Condition With: Discussed with patient and reading recovery teacher Planning: PT recommending PT at rehab
[2018-07-15] MEDS: Lisinopril 5 MG Tablet PO SCH (09:59)
[2018-07-15] MEDS: amLODIPine 5 MG Tablet PO SCH (09:59)
[2018-07-15] MEDS: Enoxaparin Inj 40 MG/0.4 ML Syringe SQ SCH (09:59)
[2018-07-15] MEDS: Calcium/Vitamin D 250/125 MG Tablet PO SCH ×2 (09:59→20:40)
[2018-07-15 10:45] LABS: Albumin 2.7 g/dL (3.4-5.0); Calcium 8.6 mg/dL (8.5-10.1); Phosphorus 3.1 mg/dL (2.5-4.9); Potassium 4.9 meq/L (3.5-5.1)
[2018-07-15 11:01] LABS: Baso % (Auto) 0.6 % (0.0-2.0); Eos # (Auto) 0.3 th/mm3 (0.0-0.4); Eos % (Auto) 6.9 % (0.0-4.0); Hemoglobin 9.5 gm/dL (11.6-15.3); Lymph # (Auto) 1.3 th/mm3 (1.0-4.8); Mean Corpuscular HGB Conc 32.9 % (32.0-36.0); Mean Corpuscular Hemoglobin 32.9 pg (27.0-34.0); Mean Platelet Volume 10.8 fL (7.0-11.0); Mono # (Auto) 0.3 th/mm3 (0.0-0.9); Mono % (Auto) 7.6 % (0.0-8.0); Neut # (Auto) 2.1 th/mm3 (1.8-7.7); Neut % (Auto) 52.9 % (16.0-70.0); Platelet Count 126 th/mm3 (150-450); Red Cell Distribution Width 14.1 % (11.6-17.2)
[2018-07-15] MEDS ORDERED: Bisacodyl 10 MG Supp RECTAL PRN (18:43)
[2018-07-15] MEDS: Gabapentin 300 MG Capsule PO SCH (20:40)
[2018-07-15] MEDS: Senna/Docusate Sodium 8.6/50 MG Tablet PO SCH (20:44)
[2018-07-16] MEDS: Primidone 50 MG Tablet PO SCH ×2 (04:42→16:30)
[2018-07-16] MEDS: Sod Chloride 0.9% Inj 1,000 ML IV.CONT SCH ×3 (04:42→23:03)
--- NOTE | 2018-07-16 07:06 | P.PNOP ---
Subjective Interval history: Resting comfortably with no new complaints Physical Exam Vital signs: Vital Signs 07/15/18 08:00 07/15/18 12:00 07/15/18 16:00 Temperature 97.8 F 98.0 F Pulse Rate 53 L 53 L 56 L Respiratory Rate 18 18 18 Blood Pressure 147/65 H 120/58 L 181/80 H Pulse Oximetry 100 97 98 07/15/18 18:27 07/15/18 20:00 07/16/18 00:00 Temperature 98.5 F 98.3 F Pulse Rate 50 L 53 L Respiratory Rate 16 16 Blood Pressure 174/74 H 170/74 H 186/78 H Pulse Oximetry 96 100 07/16/18 02:00 07/16/18 04:00 Temperature 97.5 F L Pulse Rate 46 L Respiratory Rate 18 16 Blood Pressure 174/74 H Pulse Oximetry 100 Intake & Output 07/15/18 07/16/18 07/16/18 18:59 06:59 18:59 Weight 82 kg Narrative: Right lower extremity: Knee immobilizer in place. Intact sensation distally with good capillary refills. Active dorsiflexion/plantar flexion of foot Results - Labs CBC & Chem 7: 07/15/18 09:35 07/15/18 09:35 Laboratory Results - last 24 hr 07/15/18 07/15/18 09:35 09:35 WBC 4.0 RBC 2.90 L Hgb 9.5 L Hct 29.0 L MCV 100.0 D MCH 32.9 MCHC 32.9 RDW 14.1 Plt Count 126 L MPV 10.8 Neut % (Auto) 52.9 Lymph % (Auto) 32.0 [place] % (Auto) 7.6 Eos % (Auto) 6.9 H Baso % (Auto) 0.6 Neut # (Auto) 2.1 Lymph # (Auto) 1.3 [place] # (Auto) 0.3 Eos # (Auto) 0.3 Baso # (Auto) 0.0 WBC Differential . Differential Comment Auto diff final Sodium 140 Potassium 4.9 Chloride 111 H Carbon Dioxide 22.0 Anion Gap 7 BUN 28 H Creatinine 1.20 H Estimated GFR 52 L Random Glucose 118 H Calcium 8.6 Phosphorus 3.1 Magnesium 2.0 Albumin 2.7 L Microbiology 07/14/18 02:15 Clean Catch Urine Urine Culture - Final 50-100,000 cfu/mL mixed gram positive clotilde (probable contaminants) Assessment and Plan - Problem List (1) Closed fracture of right distal femur Code(s): S72.401A - Unspecified fracture of lower end of right femur, initial encounter for closed fracture Status: Acute Qualifiers: Encounter type: initial encounter Fracture morphology: torus Qualified Code(s): S72.471A - Torus fracture of lower end of right femur, initial encounter for closed fracture - Assessment and Plan Right distal periprosthetic femoral shaft fracture Physical therapy consult--strict nonweightbearing, no quad sets X-rays today of right knee Emma and SAMEER shankar Case management for rehab place Follow-up orthopedics in 2 weeks Start calcium and vitamin D supplementation
[2018-07-16] MEDS: Lisinopril 5 MG Tablet PO SCH (08:27)
[2018-07-16] MEDS: Senna/Docusate Sodium 8.6/50 MG Tablet PO SCH ×2 (08:27→23:03)
[2018-07-16] MEDS: Enoxaparin Inj 40 MG/0.4 ML Syringe SQ SCH (08:27)
[2018-07-16] MEDS: Calcium/Vitamin D 250/125 MG Tablet PO SCH ×2 (08:27→20:18)
[2018-07-16] MEDS: amLODIPine 5 MG Tablet PO SCH (08:28)
--- NOTE | 2018-07-16 13:35 | P.PN ---
Subjective Interval history: Follow-up visit for right femur fracture, HTN and UTI. Patient is seen and examined sitting up in recliner in in no acute distress, daughter at bedside. She denies any fevers, chills, dysuria, shortness of breath, cough, chest pain, nausea, or vomiting. Patient reports that her pain is well controlled, has not had a bowel movement yet. Physical Exam Vital signs: Vital Signs 07/15/18 16:00 07/15/18 18:27 07/15/18 20:00 Temperature 98.0 F 98.5 F Pulse Rate 56 L 50 L Respiratory Rate 18 16 Blood Pressure 181/80 H 174/74 H 170/74 H Pulse Oximetry 98 96 07/16/18 00:00 07/16/18 02:00 07/16/18 04:00 Temperature 98.3 F 97.5 F L Pulse Rate 53 L 46 L Respiratory Rate 16 18 16 Blood Pressure 186/78 H 174/74 H Pulse Oximetry 100 100 07/16/18 08:00 Temperature 98.2 F Pulse Rate 48 L Respiratory Rate 18 Blood Pressure 161/74 H Pulse Oximetry 96 Intake & Output 07/15/18 07/16/18 07/16/18 18:59 06:59 18:59 Intake Total 350 / 350 Output Total 300 / 300 Balance 50 / 50 Weight 82 kg Intake: IV 100 / 100 Rocephin Inj 1,000 MG In NS Inj 100 / 100 100 ML @ 200 mls/hr IV.SIG Q24H [facility] Rx#:[id number] Oral 250 / 250 Output: Urine 300 / 300 Other: Date of Last Bowel Movement 07/13/18 Narrative: GENERAL: Well-developed, well-nourished female in no acute distress. SKIN: Warm and dry. HEAD: Atraumatic. Normocephalic. EYES: Pupils equal and round. No scleral icterus or drainage. ENT: Mucous membranes pink and moist. NECK: Trachea midline. CARDIOVASCULAR: Regular rate and rhythm. RESPIRATORY: Clear to auscultation. Breath sounds equal bilaterally. GASTROINTESTINAL: Abdomen soft, non-tender, nondistended. + bowel sounds MUSCULOSKELETAL: Extremities without clubbing, cyanosis. RLE limited movement due to CKS, + foot and toe movement. NEUROLOGICAL: Awake and alert. No obvious cranial nerve deficits. Motor grossly within normal limits. Normal speech. Results - Labs CBC & Chem 7: 07/15/18 09:35 07/15/18 09:35 Microbiology 07/14/18 02:15 Clean Catch Urine Urine Culture - Final 50-100,000 cfu/mL mixed gram positive clotilde (probable contaminants) Assessment and Plan - Plan Femur fracture Knee x ray reviewed and shows a Mildly displaced spiral fracture of the distal femur about the long femoral stem component of the total knee arthroplasty. -Orthopedic services have seen and evaluated patient, no surgical intervention, recommend PT with strict nonweightbearing, no quad sets -Started on calcium and vitamin D supplementation -Follow-up with orthopedics in 2 weeks -Patient not requiring any IV morphine for pain control LEONARD -Continue IV hydration, renal function improved -Avoid nephrotoxins Hypertension, acute -BP still mildly elevated, increase lisinopril dose to 10 mg, continue Norvasc Urinary tract infection -UA positive, urine culture with mixed clotilde probably contaminated, asymptomatic , afebrile. 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
--- NOTE | 2018-07-16 15:33 | P.CONREH ---
History of Present Illness Service: Physical medicine and rehabilitation Consult date: 07/16/18 Primary Care Provider: UNKNOWN Family Provider: UNKNOWN Chief Complaint: Right knee pain History of Present Illness: Nereida Medeiros is an 83-year-old [id number] female admitted to [facility] 07/13/18 after a fall at home. Head CT was negative. Right knee x-ray showed: mildly displaced spiral fracture of the distal femur about the long femoral stem component of the total knee arthroplasty. Orthopedics recommends strict nonweightbearing with CKS at all times. Patient was found to have a urinary tract infection. Systolic blood pressure has been elevated and medications are being adjusted including adjustment of lisinopril. Review of Systems Constitutional: Denies headache(s) Eyes: Denies double vision Ears, Nose, Mouth, and Throat: Denies difficulty swallowing Cardiovascular: Denies chest pain Respiratory: Denies shortness of breath Gastrointestinal: Reports constipation, Denies abdominal pain Genitourinary: Denies urinary incontinence Musculoskeletal: Reports abnormal walking, Reports joint pain (Right knee) Skin/Breast: Denies rash Neurologic: Reports tingling (Toes bilaterally) Psychiatric: Reports other (No LOC with fall), Denies confusion Hematologic/Lymphatic: Denies easy bruising PMFSH - History History Provided By: Patient - Medical History Medical History: Medical History (Last Reviewed 07/13/18 @ 20:34 by Ana Upton) History of hypertension Hx of fracture of pelvis - Surgical History Surgical History: Surgical History (Last Reviewed 07/14/18 @ 10:42 by Eleanor Hastings PT) History of knee replacement - Family History Family History: Family History (Last Reviewed 07/14/18 @ 10:42 by Eleanor Hastings PT) Other HTN (hypertension) - Tobacco History Second Hand Smoke Exposure: No Smoking Status: Never smoker - Alcohol History How Often Do You Have a Drink Containing Alcohol: Never - Substance Use History Substance History: No History of Abuse - Travel History Recent Travel in the [place] Within the Last 8 Weeks: No Recent Travel Out of the Country Within the Last 8 Weeks: No - Immunization History Tetanus Immunization: >5 Years Hx Influenza Vaccine This Season: No Medications and Allergies Active Medications: Active Medications Acetaminophen (Tylenol) 650 mg PO Q4H PRN PRN Reason: Temp > 100.4 Last Admin: 07/14/18 17:09 Dose: 650 mg Al Hydroxide/Mg Hydroxide (Milk Of Magnesia Liq) 30 ml PO Q12H PRN PRN Reason: Mild Constipation Last Admin: 07/16/18 13:05 Dose: 30 ml Amlodipine Besylate (Norvasc) 5 mg PO DAILY [facility] Last Admin: 07/16/18 08:28 Dose: Not Given Bisacodyl (Dulcolax Supp) 10 mg RECTAL DAILY PRN PRN Reason: SEVERE CONSITIPATION Calcium/Vitamin D (Oscal With D 250/125 Mg) 1 tab PO BID [facility] Last Admin: 07/16/18 08:27 Dose: 1 tab Clonidine HCl (Catapres) 0.1 mg PO Q6H PRN PRN Reason: SBP>180, DBP>110 Last Admin: 07/16/18 08:27 Dose: 0.1 mg Enoxaparin Sodium (Lovenox Inj) 40 mg SQ DAILY [facility] Last Admin: 07/16/18 08:27 Dose: Not Given Gabapentin (Neurontin) 300 mg PO HS [facility] Last Admin: 07/15/18 20:40 Dose: 300 mg Sodium Chloride (Ns Inj) 1,000 mls @ 100 mls/hr IV.CONT .Q10H [facility] Last Admin: 07/16/18 04:42 Dose: Not Given Lactulose (Lactulose Liq) 30 ml PO DAILY PRN PRN Reason: SEVERE CONSITIPATION Last Admin: 07/16/18 13:05 Dose: 30 ml Lisinopril (Prinivil) 5 mg PO DAILY [facility] Last Admin: 07/16/18 08:27 Dose: 5 mg Morphine Sulfate (Morphine Inj) 2 mg IV.PUSH Q3H PRN PRN Reason: pain 1 to 10 Ondansetron HCl (Zofran Inj) 4 mg IV.PUSH Q6H PRN PRN Reason: NAUSEA OR VOMITING Primidone (Mysoline) 100 mg PO Q12H [facility] Last Admin: 07/16/18 04:42 Dose: 100 mg Senna/Docusate Sodium (Arely-Colace) 1 tab PO BID [facility] Last Admin: 07/16/18 08:27 Dose: 1 tab Sennosides (Senokot) 17.2 mg PO Q12H PRN PRN Reason: Moderate Constipation Allergies Allergy/AdvReac Type Severity Reaction Status Date / Time No Known Allergies Allergy Unverified 07/13/18 20:26 Exam - Physical Examination Vital Signs / I&O: Vital Signs 07/15/18 16:00 07/15/18 18:27 07/15/18 20:00 Temperature 98.0 F 98.5 F Pulse Rate 56 L 50 L Respiratory Rate 18 16 Blood Pressure 181/80 H 174/74 H 170/74 H Pulse Oximetry 98 96 07/16/18 00:00 07/16/18 02:00 07/16/18 04:00 Temperature 98.3 F 97.5 F L Pulse Rate 53 L 46 L Respiratory Rate 16 18 16 Blood Pressure 186/78 H 174/74 H Pulse Oximetry 100 100 07/16/18 08:00 Temperature 98.2 F Pulse Rate 48 L Respiratory Rate 18 Blood Pressure 161/74 H Pulse Oximetry 96 Intake & Output 07/15/18 07/16/18 07/16/18 18:59 06:59 18:59 Intake Total 350 / 350 Output Total 300 / 300 Balance 50 / 50 Weight 82 kg Intake: IV 100 / 100 Rocephin Inj 1,000 MG In NS Inj 100 / 100 100 ML @ 200 mls/hr IV.SIG Q24H [facility] Rx#:[id number] Oral 250 / 250 Output: Urine 300 / 300 Other: Date of Last Bowel Movement 07/13/18 Intake & Output 07/14/18 07/15/18 07/16/18 07/17/18 06:59 06:59 06:59 06:59 Intake Total 200 / 200 0 / 1940 350 / 350 Output Total 300 / 300 Balance 200 / 200 1939 / 1942 50 / 50 Weight 82.3 kg 82 kg 82 kg General: No acute distress Respiratory: Lungs CTA, Non-labored respirations, BS equal Gastrointestinal: Positive bowel sounds, Non-distended, Non-tender Date of Last Bowel Movement: 07/13/18 Cardiovascular: Normal rate, Regular rhythm Skin: No rash Musculoskeletal: Swelling (Trace right ankle) Psychiatric: Cooperative, Appropriate mood & affect - Neurologic Orientation: oriented to: Self, Place, Time (With cues) Neurologic: Cranial nerves (Intact 2-12) Motor: Right Upper Extremity (5/5), Left Upper Extremity (5/5), Right Lower Extremity (Ankle 5/5), Left Lower Extremity (5/5) Sensory: Intact to light touch except toes bilaterally Balance: Sitting (Up in bedside chair with good trunk control) Results - Labs CBC & Chem 7: 07/15/18 09:35 07/15/18 09:35 Assessment and Plan - Plan Assessment: 1. Right periprosthetic spiral fracture of the distal femur after fall at home 07/13/18 2. Impaired mobility and ADLs due to above 3. Hypertension 4. Urinary tract infection Recommendations: 1. Patient min -mod assist of 2 for transfers with PT. Unable to progress to gait NWB right LE with CKS 2. OT addressing ADL's and max assist for LE dressing and toileting. 3. Peer to peer review completed and anticipate that SNF level of care will be approved for ongoing rehabilitation 4. Will follow while hospitalized and as needed at discharge Thank you for this consult
--- NOTE | 2018-07-16 15:44 | XR ---
EXAM DATE: 07/16/2018 7:57 AM EDT AGE/SEX: 83 years / Female INDICATIONS: Evaluate fracture. CLINICAL DATA: This is the patient's subsequent encounter. Patient reports that signs and symptoms h ave been present for 4 - 6 days and indicates a pain score of 5/10. MEDICAL/SURGICAL HISTORY: None. . Right total knee replacement. COMPARISON: [facility], KNEE COMPLETE RIGHT 4V, 07/13/2018. . FINDINGS: AP and lateral views of the right knee demonstrates a spiral fracture of the distal femoral metadiaph ysis with approximately 3 mm of displacement of the distal fragment, stable from the prior study. The fracture extends around the distal femoral stem. There is a constrained total knee arthroplasty with longstem femoral and tibial components. Tibial component is cemented. There is a radiolucent patella r component. No definite joint effusion is identified. No acute soft tissue abnormality is identified . CONCLUSION: Stable oblique minimally displaced periprosthetic fracture of the distal right femoral metadiaphysis, as above. Electronically signed by: Gunner Cm MD 07/16/2018 9:28 AM EDT
[2018-07-16] MEDS ORDERED: Lisinopril 10 MG Tablet PO SCH (16:41)
[2018-07-16] MEDS: Gabapentin 300 MG Capsule PO SCH (20:18)
[2018-07-17] MEDS: Primidone 50 MG Tablet PO SCH (04:48)
[2018-07-17] MEDS: Sod Chloride 0.9% Inj 1,000 ML IV.CONT SCH (07:49)
[2018-07-17] MEDS: amLODIPine 5 MG Tablet PO SCH (08:51)
[2018-07-17] MEDS: Calcium/Vitamin D 250/125 MG Tablet PO SCH (08:51)
[2018-07-17] MEDS: Senna/Docusate Sodium 8.6/50 MG Tablet PO SCH (08:51)
[2018-07-17] MEDS: Enoxaparin Inj 40 MG/0.4 ML Syringe SQ SCH (08:51)
--- NOTE | 2018-07-17 09:09 | P.DS ---
Date of admission: 07/13/18 23:02 Primary care physician: UNKNOWN Attending physician on discharge: Yaron Hernadez Anticipated date of discharge: 07/17/18 Brief History from admission: 83 y/o female with a history of htn presented to the ED after having a fall. Patient states she tripped and fell in his living room on to her right knee. She currently denies any pain. No chest pain, sob, or dizziness prior to fall. Denies any LOC or hitting her head. No recent fever or chills. DS: Medications - Discharge Medications Prescriptions: gabapentin 300 mg PO HS #30 cap lisinopril 10 mg PO DAILY 30 Days #30 tab primidone 100 mg PO Q12H #60 tab DS: Summary Hospital Course: 83-year-old -[place] female with past medical history significant for hypertension who presented to the emergency department on 07/14 after sustaining a mechanical fall when she tripped in her living room landing on her right knee. Imaging completed in the emergency department showed a mildly displaced spiral fracture of the distal femur. Hip x-ray revealed possible pubic fracture. Patient underwent a CT of pelvis which revealed old fractures involving the superior and inferior pubic rami on the right. Patient was admitted to orthopedic floor, orthopedic services consulted for further recommendations. After discussion with orthopedic surgeon patient was in agreement for nonsurgical options. Ortho recommended nonweightbearing of right lower extremity, and no quad sets. Patient was also instructed to follow-up with orthopedics in 2 weeks, additionally started on calcium and vitamin D supplementation. Initially during her admission patient was thought to have a urinary tract infection however culture grew 50-100,000 mixed clotilde organisms, most likely contaminated. Patient had been afebrile and asymptomatic, antibiotics discontinued, patient remained asymptomatic following this. Patient 's BP was also noted to be increased and her lisinopril was doubled to 10 mg, she received the first dose this morning. She was cleared by orthopedic services and will now be discharged to [facility] rehab. Patient is seen and examined this morning sitting on the side of the bed eating breath appears to be in no acute distress. She denies any fevers, chills, nausea, vomiting, diarrhea, cough, shortness of breath, chest pain or dysuria. She does not report any pain or discomfort at the moment. Patient also states that she managed to have a bowel movement yesterday. - Time Spent with Patient Total time spent providing and/or coordinating discharge services: Less than 30 minutes - Quality: VTE Deep Vein Thrombosis/Pulmonary Embolism Present on Admission: No Exam Vital signs: Vital Signs 07/16/18 16:00 07/16/18 20:00 07/16/18 23:30 Temperature 97.2 F L 97.1 F L Pulse Rate 53 L 58 L Respiratory Rate 16 17 18 Blood Pressure 130/62 188/82 H Pulse Oximetry 100 98 07/17/18 00:00 07/17/18 01:00 07/17/18 04:00 Temperature 97.5 F L 98.2 F Pulse Rate 61 54 L Respiratory Rate 17 18 17 Blood Pressure 184/83 H 186/77 H Pulse Oximetry 97 99 Intake & Output 07/16/18 07/17/18 07/17/18 18:59 06:59 18:59 Intake Total 1630 / 1630 Output Total 300 / 300 Balance 1330 / 1330 Intake: IV 100 / 100 Rocephin Inj 1,000 MG In NS Inj 100 / 100 100 ML @ 200 mls/hr IV.SIG Q24H [facility] Rx#:[id number] Oral 1530 / 1530 Output: Urine 300 / 300 Other: # Voids 2 Date of Last Bowel Movement 07/16/18 07/16/18 # Bowel Movements 1 Narrative: GENERAL: Well-developed, well-nourished female resting in bed comfortably appears to be in no acute distress. SKIN: Warm and dry. HEAD: Atraumatic. Normocephalic. EYES: Pupils equal and round. No scleral icterus or drainage. ENT: Mucous membranes pink and moist. NECK: Trachea midline. CARDIOVASCULAR: Regular rate and rhythm. RESPIRATORY: Clear to auscultation. Breath sounds equal bilaterally. GASTROINTESTINAL: Abdomen soft, non-tender, nondistended. + bowel sounds MUSCULOSKELETAL: Extremities without clubbing, cyanosis. RLE limited movement due to CKS NEUROLOGICAL: Awake and alert. No obvious cranial nerve deficits. Motor grossly within normal limits. Normal speech. Results Procedures completed during hospitalization: none - Impressions ITS Impressions Head CT 07/13/18 20:23 CONCLUSION: 1. No acute findings in the brain. . Hip X-Ray 07/13/18 20:23 CONCLUSION: Abnormal appearance to the right superior and inferior pubic ramus suggesting old bony injury, but there is also a lucency about the superior pubic ramus suggesting there may be an acute on chronic injury. Small cystic lesion at the junction of the superior femoral head and neck may also be a manifestation of old injury. Recommend further evaluation with thin section CT. Pelvis CT 07/13/18 22:48 CONCLUSION: 1. Old trauma. No acute abnormality. Chest X-Ray 07/13/18 22:58 CONCLUSION: No acute cardiopulmonary disease. Knee X-Ray 07/16/18 00:00 CONCLUSION: Stable oblique minimally displaced periprosthetic fracture of the distal right femoral metadiaphysis, as above. Discharge Plan - Discharge Disposition Patient Disposition: 03 Discharge to SNF - Discharge Condition Condition: Fair - Discharge Order Discharge Orders: Discharge Order (Routine); Ordered 07/17/18 Ordered By: Corby Jolly - Physicians Team Primary Care Provider: UNKNOWN, Attending Provider: Yaron Hernadez Other Providers: Brian Farr MD ; [employer],Insurance ; Yaron Valdez MD ; Renetta Hutson MD
== END 2018-07-17 13:24 ==
LOC: PHEFT 20:06 → PHEDA 23:02 → N06 07-14 02:56
PROVIDERS: ADMIT Internal Medicine; ATTEND Internal Medicine